=== PATIENT | male | born 1995 | race Caucasian/White ===

== ENCOUNTER 2016-09-04 23:41 | Emergency (ER) | payer BC, MEDICAID, OTHER ==
[~2016-09-04] VITALS: Ht 180.3 cm; Wt 54.5 kg
[~2016-09-04 23:41] MED LIST: CEPH-507 PO; DOXY50CA; LISD50CA3 PO; MELA5TAB5 PO; TRAZ-28
--- OUTSIDE RECORDS SUMMARY | 2016-09-04 23:45 | XMS REPORT | Continuity of Care Document ---
Author Author [facility] Organization [facility] Address Unknown Phone Unavailable Support Name Relationship Address Phone IAN KOHLI MD Caregiver [address] [place], [place] [id number] ADOLFO AMEZCUA Next Of Kin [address] [place] [address] Advance Directives Directive Response Recorded Date/Time Advanced Directives No 07/05/15 4:51am Problems Active Problems Medical Problem Onset Date Status Knee pain 04/03/2012 Resolved Laceration of finger Unknown Acute Medications Current Home Medications Medication Dose Units Route Directions Days/Qty Instructions Start Date Cephalexin 500 Mg 500 Mg ORAL Three Times A Day 07/05/15 Past Home Medications Medication Directions Ordered Status Lisdexamfetamine Dimesylate 50 Mg Capsule, 100 Mg Oral Daily 04/03/12 Discontinued Trazodone Hcl 50 Mg Tab, 04/03/12 Discontinued Doxycycline Hyclate 50 Mg Capsule, 04/03/12 Discontinued Melatonin 5 Mg Tablet, 5 Mg Oral Bedtime 03/03/14 Discontinued Social History Query Response Start Date Stop Date Smoking Status Unknown, if ever smoked Hospital Discharge Instructions No hospital discharge instructions. Plan of Care Prescriptions See Medication Section Functional Status No functional status results. Allergies, Adverse Reactions, Alerts No known allergies. Immunizations No immunization records. Vital Signs Acute Vital Signs Vital Response Date/Time Height 5 ft 11 in Weight 168 lb Body Mass Index 23.4 kg/m^2 Results No known relevant diagnostic tests, laboratory data and/or discharge summary. Procedures No known history of procedures. Encounters Encounter Location Arrival/Admit Date Discharge/Depart Date Attending Provider Discharged Recurring [facility] 07/05/15 4:11am 10/03/15 11:59pm IAN KOHLI MD
[2016-09-05 00:55] VITALS: BP 147/89
== END 2016-09-05 00:57 | disposition home or self-care (01) ==
LOC: ED 23:44
DX: S63.92XA Sprain of unspecified part of left wrist and hand, initial encounter (principal); W22.01XA Walked into wall, initial encounter; Y92.009 Unspecified place in unspecified non-institutional (private) residence as the place of occurrence of the external cause
CPT/HCPCS: 99281; 99283